=== PATIENT | female | born 1955 | race Caucasian/White ===

== ENCOUNTER → 2021-08-27 | Outpatient (CLI) | payer OTHER ==
[~2021-08-27] MED LIST: ASPI-630 PO; CRESTOR40 MG PO; MULT-445 PO; OMEG100021 PO; TRIA1CAP3 PO; VITA45CA PO; vitamin b 12 PO; vitamin d 3
--- NOTE | 2021-08-27 13:01 | PDOC1 ---
INITIAL PAIN CONSULT DATE OF SERVICE: DOS: DATE: 08/27/21 TIME: 12:55 CHIEF COMPLAINT: Chief Complaint: Bilateral knee joint pain HISTORY OF PRESENT ILLNESS: 66-year-old female presents history of pain bilateral knees as well as bilateral shoulders right greater than left each patient reports her main complaint is her knee pain she has had this going on for about 5 years not the result of any specific injury or accident that she is aware but had arthritic pains in the knees with walking standing changing position specially climbing stairs or steps etc. patient reports is much worse with activity better with sitting or laying down but still can awaken her from sleep at night and generally does about up to 5 times patient reports it does not affect her bowel bladder control but does affect ability to walk significantly she is tried aspirin as well as Motrin both of which helped only to minimal extent she is done physical therapy in the past but nothing recently also doing stretching strength exercises currently with only minimal decrease in pain. Patient did have x-rays of the bilateral knees showing moderate medial mild to moderate patellofemoral and mild lateral compartment degeneration of the right knee progressed since interval films left knee shows mild to moderate medial mild lateral and mild patellofemoral compartment degeneration mildly progressed as well. Films of the shoulder shows right shoulder with mild acromioclavicular degeneration and suspected intraosseous ganglion cyst involving posterior humeral head possibly associated with rotator cuff pathology left shoulder shows minimal acromioclavicular degeneration. Patient rates her disability rating 0-10 10 and the worst is a 6 with family home responsibilities occupation sexual behavior 8 with recreational activities 5 with social activity for self-care and life support activities. PAST MEDICAL HISTORY: PMH: Arthritis, hearing loss, bronchitis PREVIOUS SURGERIES: Past Surgical Hx: Left breast biopsy CURRENT MEDICATIONS: Current Meds: Active Scripts Medications Dose Route/Sig Max Daily Dose Days Date Category K2-45 (Vitamin K2) 45 Mcg Capsule 45 Mcg PO DAILY 08/27/21 Reported [vitamin d 3] 08/27/21 Reported Multivitamins (Multivitamin) 1 Each Tablet 1 Tab PO DAILY 08/27/21 Reported Fish Oil 1,000 mg Softgel (Hanson-3/Dha/Epa/Fish Oil) 1,000 Mg Capsule 1 Cap PO BID 30 08/27/21 Reported [vitamin b 12] 500 Mcg PO 08/27/21 Reported Crestor (Rosuvastatin Calcium) 40 Mg Tablet 1 Tab PO DAILY 08/27/21 Reported Triamterene-Hctz 37.5-25 Mg Cp (Triamterene/Hydrochlorothiazid) 1 Each Capsule 1 Cap PO DAILY 08/27/21 Reported Aspirin 81 Mg Tab.chew 1 Tab PO DAILY 08/27/21 Reported ALLERGIES; Allergies: Coded Allergies: No Known Drug Allergies (Unverified , 08/27/21) FAMILY HISTORY: Family Hx: No major medical problems or conditions that she is aware of SOCIAL HISTORY: Social Hx: Patient does not drink alcohol does not smoke, does not use any illegal illicit or recreational drugs is lives with her spouse lives locally in [facility]. REVIEW OF SYSTEMS: ROS: Positive for those items mentioned in history of present illness, all systems are reviewed, otherwise negative ,and are complete full and well-documented on patient's chart. PHYSICAL EXAM: VS: Blood pressure is 126/79 pulse 63 respirations 18 temperature is 99.2 F height is 5 feet 2 inches weight is 188 pounds. PE: PHYSICAL EXAMINATION: GENERAL: The patient is awake, alert, oriented, appropriate, very pleasant in demeanor HEENT: Shows normocephalic, atraumatic. Extraocular movements are intact and symmetrical. Oral cavity: Mucous membranes moist and pink. Dentition is intact. NECK: Shows anterior throat supple without palpable lymphadenopathy noted. CHEST: Shows normal on inspection. Breath sounds are clear bilaterally. HEART: Shows S1, S2 clear. No murmurs auscultated. ABDOMEN: Soft, nontender, nondistended. No palpable organomegaly is noted. BACK: Shows spine grossly in the midline. Normal-appearing cervical lordotic curvature. There is slightly increased thoracic kyphosis, some minor flattening of the lumbar lordotic curvature. Lumbar paraspinous muscles show symmetrical on inspection, on palpation shows some moderate tenderness diffusely throughout the upper, middle and lower distribution of the paraspinous muscles bilaterally and also into the lower thoracic paraspinous musculature, firm and tender, but without specific trigger points, without radiation of pain. The patient has good rotational motion of the lumbar spine, both laterally as well as extension and flexion without significant difficulty. No tenderness over the spinous processes, sacrum or sacroiliac regions. EXTREMITIES: Lower extremities show deep tendon reflexes 2+ in the patellar and tendo calcaneus tendons. Motor exam is 5 on a scale of 5 with right dorsiflexion, extension, quadriceps and hamstring flexion and 5/5 on the left. Peripheral pulses are 1+ posterior tibial. No peripheral edema is noted bilaterally. Lower extremities are warm and dry to touch, equal in color and appearance. Knees shows tenderness in the medial collateral ligament bila terally slightly more on the right than the left but with good range of motion bilaterally without ratcheting without crepitus. Upper extremities show deep tendon reflexes 2+ in the bicep tricep tendons, motor exam strong with annealing furnace tender strength rated 5 out of 5 as is bicep tricep flexion. Patient's shoulder shows significant tenderness with palpation of the anterior aspect of the right shoulder compared to the left which is mildly tender but with good range of motion with abduction as well as reaching over the head with both hands. SKIN: Shows warm and dry, good turgor. No edema. No sores, rashes or bruising throughout. IMPRESSION: Impression: 66-year-old female with approximate 5-year history of bilateral knee joint pain bilateral shoulder joint pain. X-rays knees and shoulders as noted Hearing loss Arthritis Plan: Options were discussed with the patient including serve medical managements continued physical therapies and interventional techniques. Patient like to pursue interventional techniques. We discussed bilateral intra- articular knee joint injections descriptions as well as anatomical models to describe the procedure. Patient will wait for preauthorization with her insurance provider, once obtained we will have her return for bilateral intra- articular knee joint injections with fluoroscopic guidance at that time. TRAVIS PORTER MD August 27, 2021 13:01
== END | disposition home or self-care (01) ==
LOC: PNCL 09:41
PROVIDERS: ATTEND Anesthesiology
DX: M25.561 Pain in right knee (principal); M25.562 Pain in left knee; M19.90 Unspecified osteoarthritis, unspecified site; Z79.82 Long term (current) use of aspirin; Z79.899 Other long term (current) drug therapy
CPT/HCPCS: G0463